=== PATIENT | male | born 1970 | race Caucasian/White ===

== ENCOUNTER 2021-05-12 12:33 | Emergency (ER) | payer OTHER ==
[2021-05-12] MEDS ORDERED: NAPROSYN500 MG PO (14:47)
[2021-05-12] MEDS ORDERED: ERYTHROMYCIN OP1 GM OS (14:47)
== END 2021-05-12 15:11 | disposition home or self-care (01) ==
LOC: ER1 12:33
DX: S05.02XA Injury of conjunctiva and corneal abrasion without foreign body, left eye, initial encounter (principal); H21.02 Hyphema, left eye; Z23 Encounter for immunization; F17.200 Nicotine dependence, unspecified, uncomplicated; E78.00 Pure hypercholesterolemia, unspecified; W22.8XXA Striking against or struck by other objects, initial encounter
CPT/HCPCS: 90471; 90715; 99283

== ENCOUNTER → 2021-09-17 | Outpatient (CLI) | payer OTHER ==
[~2021-09-17] MED LIST: ERYTHROMYCIN OP1 GM OS; NAPROSYN500 MG PO
== END ==
LOC: KOH-I 14:35
DX: R51.9 Headache, unspecified (principal)
CPT/HCPCS: 70450